=== PATIENT | male | born 1965 | race Caucasian/White ===

== ENCOUNTER 2017-03-06 13:58 | Emergency (ER) | payer SELFPAY ==
[~2017-03-06] VITALS: Ht 170.2 cm; Wt 68.0 kg
--- NOTE | 2017-03-06 14:13 | NUR ---
PT IS IN ROOM #1B. DR NEUMANN EVALUATED THE PT.
[2017-03-06] MEDS ORDERED: IV NORMAL SALINE 1000 ML BAG IV ONE (14:45)
[2017-03-06 15:11] LABS: BASOPHILS % (AUTO) 0.6 % (0.0-2.0); EOSINOPHILS % (AUTO) 0.4 % (0.0-7.0); HEMATOCRIT 45.7 % (40-50); HEMOGLOBIN 15.3 G/DL (14.0-18.0); LYMPHOCYTES # (AUTO) 0.1 K/UL (0.8-4.8); LYMPHOCYTES % (AUTO) 1.5 % (20.5-51.5); MEAN CORPUSCULAR HEMOGLOBIN 28.9 UUG (27.0-31.0); MEAN CORPUSCULAR HGB CONC 33 g/dL (32.0-37.0); MEAN CORPUSCULAR VOLUME 86.6 FL (82.0-92.0); MONOCYTES # (AUTO) 0.4 K/UL (0.1-1.30); MONOCYTES % (AUTO) 5.6 % (0.0-11.0); NEUTROPHILS % (AUTO) 91.9 % (38.5-71.5); PLATELET COUNT (AUTO) 119 K/UL (150-450); RED BLOOD CELL COUNT(AUTO) 5.28 MIL/UL (4.7-6.1); WHITE BLOOD COUNT (AUTO) 7.5 K/UL (4.0-11.2)
[2017-03-06 15:22] LABS: POTASSIUM 4.9 mmol/L (3.5-5.1)
[2017-03-06 15:32] LABS: BILIRUBIN,DIRECT 0.1 mg/dL (0.0-0.2); BILIRUBIN,TOTAL 0.7 mg/dL (0.2-1.0); TOTAL PROTEIN, SERUM 6.5 g/dL (6.4-8.2)
--- NOTE | 2017-03-06 16:40 | NUR ---
PT WAS D/C TO HOME AFTER DR NEUMANN RE-EVALUATION. D/C INSTRUCTIONS GIVEN TO THE PT.
== END 2017-03-06 17:08 | disposition home or self-care (01) ==
LOC: ER 14:01
DX: R55 Syncope and collapse (principal); R11.2 Nausea with vomiting, unspecified
CPT/HCPCS: 71010; 80048; 80076; 82550; 84484; 85025; 93005; 96360; 99285; A4663; J7030; 70030-TC